=== PATIENT | female | born 1980 | race Caucasian/White ===

== ENCOUNTER 2017-10-04 08:59 | Emergency (ER) | payer MEDICAID ==
[~2017-10-04] VITALS: Ht 160 cm; Wt 63.0 kg
[2017-10-04 09:00] VITALS: BP_SYST 137
[2017-10-04] MEDS ORDERED: ONDANSETRON 4 MG ODT TAB PO ONE (09:45)
[2017-10-04] MEDS ORDERED: traMADol HCL HCL 50 MG TABLET (ULTRAM) PO ONE (09:45)
[2017-10-04 10:07] VITALS: BP_SYST 125
== END 2017-10-04 10:07 | disposition home or self-care (01) ==
LOC: SED 08:59
DX: S92.102A Unspecified fracture of left talus, initial encounter for closed fracture (principal); X50.1XXA Overexertion from prolonged static or awkward postures, initial encounter; Y93.89 Activity, other specified; Y92.89 Other specified places as the place of occurrence of the external cause; Y99.8 Other external cause status; Z88.0 Allergy status to penicillin
CPT/HCPCS: 99284

== ENCOUNTER 2018-08-27 14:39 | Emergency (ER) | payer MEDICAID, OTHER ==
[~2018-08-27] VITALS: Ht 160 cm; Wt 66.7 kg
[2018-08-27 14:45] VITALS: BP_SYST 168
[2018-08-27] MEDS ORDERED: KETOROLAC TROMETHAMINE 30 MG VIAL IVP ONE (15:15)
[2018-08-27] MEDS ORDERED: LORazepam 1 MG TABLET PO ONE (15:15)
[2018-08-27] MEDS ORDERED: KETOROLAC TROMETHAMINE 60 MG/2 ML VIAL IM ONE (15:15)
[2018-08-27] MEDS ORDERED: LORazepam 2 MG/ML VIAL (FOR ER USE) IVP ONE (15:15)
[2018-08-27 15:27] LABS: BASOPHILS # (AUTO) 0.1 K/uL (0.0-0.2); EOSINOPHILS # (AUTO) 0.3 K/uL (0.0-0.4); HEMATOCRIT 38.8 % (36-48); HEMOGLOBIN 12.9 g/dL (12.0-16.0); LYMPHOCYTES # (AUTO) 1.9 K/uL (1.0-5.5); LYMPHOCYTES % (AUTO) 23.7 % (20.5-51.5); MEAN CORPUSCULAR HEMOGLOBIN 29 pg (27-31); MEAN CORPUSCULAR HGB CONC 33 % (32-36); MEAN CORPUSCULAR VOLUME 86 fL (79.0-98.0); MONOCYTES # (AUTO) 0.7 K/uL (0.0-1.0); MONOCYTES % (AUTO) 9.3 % (1.7-9.3); NEUTROPHILS # (AUTO) 4.8 K/uL (1.8-7.7); PLATELET COUNT (AUTO) 283 K/uL (130-430); RED BLOOD CELL COUNT(AUTO) 4.52 MIL/uL (4.2-6.2); RED CELL DISTRIBUTION WIDTH 15.8 % (9.0-15.0); WHITE BLOOD COUNT (AUTO) 7.8 K/uL (4.8-10.8)
[2018-08-27 15:32] LABS: CALCIUM 9.6 mg/dL (8.4-11.0); CREATININE 0.54 mg/dL (0.55-1.30); POTASSIUM 3.3 mmol/L (3.5-5.1)
[2018-08-27 15:39] LABS: ALBUMIN 4.1 g/dL (3.4-4.8); TOTAL BILIRUBIN 0.6 mg/dL (0.0-1.0)
[2018-08-27] MEDS ORDERED: LIDOCAINE 1% 10 MG/ML, 20 ML MDV INJ ONE (16:30)
[2018-08-27 16:34] VITALS: BP_SYST 154
== END 2018-08-27 16:34 | disposition home or self-care (01) ==
LOC: SED 14:39
DX: R07.89 Other chest pain (principal); F41.9 Anxiety disorder, unspecified; Z88.0 Allergy status to penicillin; F17.210 Nicotine dependence, cigarettes, uncomplicated; R03.0 Elevated blood-pressure reading, without diagnosis of hypertension
CPT/HCPCS: 36415; 71045; 80053; 82550; 83880; 84484; 85025; 96374; 96375; 99284; J1885; J2060; 93005